=== PATIENT | male | born 1990 | race Caucasian/White ===

== ENCOUNTER 2021-03-10 13:32 | Outpatient (REF) | payer MEDICARE, MEDICAID, SELFPAY ==
[2021-03-10 13:48] VITALS: BP 133/65; PULSE 98; TEMP 36.7; O2SAT 99
[2021-03-10 13:49] VITALS: BMI 62.5
== END 2021-03-10 13:33 | disposition home or self-care (01) ==
LOC: HO.MS 13:32
PROVIDERS: PCP Internal Medicine; Visit Provider Ophthalmology
PROC: (CPT 67840; principal; 2021-03-10 15:50)
DX: D23.112 Other benign neoplasm of skin of right lower eyelid, including canthus (principal); I10 Essential (primary) hypertension; G82.20 Paraplegia, unspecified; Q05.9 Spina bifida, unspecified; Z79.899 Other long term (current) drug therapy
CPT/HCPCS: 67840; 88304; 88305